=== PATIENT | female | born 1965 | race Caucasian/White ===

== ENCOUNTER 2016-10-10 15:00 | Inpatient (IN) | payer OTHER ==
[2016-10-10] MEDS ORDERED: FUROSEMIDE 10 MG/ML VIAL IV ONE ×3 (15:23→20:18)
--- NOTE | 2016-10-10 15:33 | ERNOTE ---
Dyspnea - Date Date of Service: 10/10/16 - General Presenting Symptoms: shortness of breath Time Seen by Provider: 10/10/16 15:16 Source: patient Exam Limitations: no limitations - Immun/Allergies/Home Medications Allergies/Adverse Reactions: Allergies amoxicillin Allergy (Verified 10/10/16 15:13) aspirin Allergy (Verified 10/10/16 15:13) erythromycin base Allergy (Verified 10/10/16 15:13) morphine Allergy (Verified 10/10/16 15:13) Penicillins Allergy (Verified 10/10/16 15:13) Home Medications: HOME MEDICATIONS NK [No Home Medication] 10/10/16 [Last Taken Unknown] - History of Present Illness Narrative: Pt. comes in with c/o swelling from her abdomen to her toes that is firm and taught and severe abdominal pain. Pt. denies any CP or NVD, but does state that she has a recent history of CHF which is treated in the ER with lasix and improves then worsens after she is discharged home. Pt. denies any fevers, alleviating factors, or aggravating factors. Review of Systems - Review of Systems Constitutional: Present: no symptoms reported. Absent: recent illness, fever, chills, fatigue, malaise EYE: Present: no symptoms reported ENT: Present: no symptoms reported Respiratory: Present: shortness of breath, cough. Absent: wheezing Cardiology: Present: edema. Absent: chest pain, palpitations Gastrointestinal/Abdominal: Present: no symptoms reported. Absent: nausea, vomiting, diarrhea Genitourinary: Present: no symptoms reported. Absent: frequency, pain, decreased urinary output, discharge Musculoskeletal: Present: no symptoms reported. Absent: back pain, joint pain Skin: Present: no symptoms reported Neurological: Present: no symptoms reported. Absent: headache, dizziness/light- headedness, numbness, tingling All Other Systems: All systems neg except as marked - Patient's Past Medical History Patient History - Medical: No pertinent hx Physical Exam - Physical Exam General Appearance: Present: wd/wn, alert, no apparent distress Eye Exam: Normal inspection: bilateral, PERRL: bilateral, EOMI: bilateral Ears, Nose, Throat: Present: normal ENT inspection, hearing grossly normal, normal pharynx Neck: Present: normal inspection, nontender. Absent: lymphadenopathy (R), lymphadenopathy (L) Respiratory: Present: no respiratory distress, normal breath sounds, no accessory muscle use, chest nontender, lungs clear Cardiovascular/Chest: Present: regular rate, rhythm, no murmur, normal peripheral pulses Gastrointestinal/Abdominal: Present: normal bowel sounds, no organomegaly, distended Back Exam: Present: normal inspection, normal range of motion, no CVA tenderness , no vertebral tenderness Extremity Exam: Present: pedal edema - +4 pitting, extremity edema - +4 pitting. Absent: decreased range of motion, calf tenderness Neurological Exam: Present: alert, oriented, normal mood/affect, no motor/ sensory deficits Skin Exam: Present: normal color, warm/dry. Absent: pallor, skin rash ED Progress - Date and Time Seen: Date and Time: 10/10/16 18:[address] Segal and will admit pt. for new onset CHF and cardiomegaly and continue on IV lasix. - Results and Orders Patient's Lab Results:: I have reviewed the patient's lab results. - Vital Signs Patient's Vital Signs:: I have reviewed the patient's vital signs. Vital Signs: Vital Signs 10/10/16 15:07 Temperature 36.6 C Pulse Rate 80 Respiratory 18 Rate Blood Pressure 130/97 - EKG EKG: other - Sinus tach with L axis deviation EKG read: Interp. by me - X-Ray X-Ray #1 X-Ray: chest Interpretation: Reviewed by me X-ray Comments: IMPRESSION: 1. LEFT LOWER LOBE COMPRESSIVE ATELECTASIS VERSUS PULMONARY INFILTRATE. CORRELATE CLINICALLY FOR PNEUMONIA. RECOMMEND FOLLOW-UP TO DOCUMENT RESOLUTION. 2. SMALL LEFT-SIDED PLEURAL EFFUSION. 3. INCREASED PERIPHERAL LUNG MARKINGS NOTED. CORRELATE CLINICALLY FOR MILD INTERSTITIAL PULMONARY EDEMA VERSUS DIFFUSE PNEUMONITIS. 4. MODERATE TO LARGE CARDIOMEGALY PRESENT. CONSIDER CARDIAC CHAMBER ENLARGEMENT VERSUS PERICARDIAL EFFUSION. - Progress/Reassessment Chief Complaint: Dyspnea Departure Clinical Impression: CHF (congestive heart failure) Qualifiers: Congestive heart failure type: unspecified congestive heart failure type Congestive heart failure chronicity: acute Qualified Code(s): I50.9 - Heart failure, unspecified Cellulitis Qualifiers: Site of cellulitis: trunk Site of cellulitis of trunk: abdominal wall Qualified Code(s): L03.311 - Cellulitis of abdominal wall - Departure Disposition: [facility] Condition: Serious
[2016-10-10] MEDS ORDERED: FUROSEMIDE 10 MG/ML VIAL ONE ×2 (16:09→18:28)
[2016-10-10 16:23] LABS: Hematocrit 36.9 % (37.0-47.0); Hemoglobin 11.8 gm/dL (12.5-16.0); Mean Cell Volume 85.4 fl (78-100); Mean Corpuscular Hemoglobin 27.3 pg (27-31); Mean Platelet Volume 11.1 fl (6.0-9.5); Neutrophil # 4.8 K/mm3 (1.3-6.0); Platelet Count 204 K/mm3 (150-450); Red Blood Count 4.32 M/mm3 (4.2-5.4); Red Cell Distribution Width 20.1 % (11.5-14.0); White Blood Count 7.6 K/mm3 (4.0-10.5)
[2016-10-10 16:35] LABS: Albumin * 3.1 gm/dl (3.4-5.0); Anion Gap 11.9 mmol/L (6.8-13.8); BUN/Creatinine Ratio 16.7 (9.0-21.6); Ca. Corrected For Albumin 9.5 mg/dL (8.4-10.2); Calcium * 9.1 mg/dL (7.9-10.9); Potassium 3.9 mmol/L (3.4-4.6)
[2016-10-10 17:20] LABS: Urine Bilirubin Negative (NEGATIVE); Urine Blood 25 /ul (NEGATIVE); Urine Ketone Negative (NEGATIVE); Urine Protein 15 mg/dL (NEGATIVE); Urine Urobilinogen Normal (NORMAL)
[2016-10-10 17:32] LABS: Urine Appearance Clear; Urine Bacteria TRACE; Urine Color Yellow; Urine Nitrite Positive (NEGATIVE); Urine WBC 0-5 /hpf (0-5)
--- NOTE | 2016-10-10 21:24 | HP ---
Chief Complaint - Chief Complaint Date of Service: 10/10/16 Time of Service: 20:00 Chief Complaint: SOB, Abdominal pain, Leg swelling. Source of HPI- Pt; not a precise historian, ER provider report, Pt's EMR. History of Present Illness: Ms. Monroy is a 50-yr-old WF pt who normally sees Dr. Arianna Wong in [place]. Her PMH involves: Anemia, Athritis, Asthma, Bipolar Disorder & Obsessive Compulsive Disorder. Pt reports that for about 1 month, she had noticed that she gets SOB with minimal activity easily. She also states that she has had worsening swelling on her lower extremities. She has felt like her "abdomen has been getting bigger." She went to [facility] ER 2 days ago due to tenderness on her abdomen. She was referred to the Gynecology at the [facility] to check for possible uterine prolapse. However, this was determined not to be the case by Dr. Bin Singh. It appears that Dr. Singh referred her to the ER as pt had also disclosed that she was recently told she had CHF 1 month ago, and was started on Lasix. Pt declines that statement and tells me she has not been on any medications. She does admit to being unable to tolerate a flat position during sleep and feels better in a propped up position. According to ER provider notes, pt stated that she went to ER in [place] recently and was diuresed with Lasix and discharged home. During evaluation at the ER today, the CXR showed increased Interstitial Lung Markings which could be suggestive of CHF. The abdominal X-ray showed concerns for Ascites. Pt denies fevers & Chills. She also denies nausea, vomiting, diarrhea and constipation. Pt will need to be admitted inpatient for a minimum of 2 midnights of more due to clinical signs of Acute Congestive Heart Failure which will respond well to IV diuretics. - Patient's Past Medical History Patient History - Medical: No pertinent hx, Anemia, Arthritis, Other Patient History - Cardiac/Respiratory: Asthma - Bipolar Disorder, Obsessive Compulsive Disorder. Patient History - Cancer: No Hx of Cancer Patient History - Surgical Procedures: Total Knee Replacement - Left. , Other - Tubal Ligation. - Family History Father Family History - Medical: , Other - MVA Mother Family History - Medical: , Diabetes Type 2 - Social History Living Situations: spouse Smoking Status: Current every day smoker Have you smoked in the past 12 months: Yes Do you dip or chew tobacco: No Initiate information on Smoking Cessation: Yes Alcohol Use: none Drug Use: none - Immunizations Immunizations Up to Date: No Hx Pneumococcal Vaccination: No Review Of Systems (GEN) - Review of Systems Generalized/Overall Review: Absent: Weakness, Chills, Fever, Diaphoresis EENTM: Absent: Eye Pain, Blurred Vision, Double Vision, Nose Congestion Respiratory: Present: Shortness of Breath, Orthopnea. Absent: Cough, Wheezing Cardiac: Absent: Chest Pain, Edema, Palpitations Abdominal: Present: Abdominal Pain. Absent: Nausea, Vomiting, Hematemesis, Constipation, Diarrhea Genitourinary: Absent: Burning, Itching, Urgency, Frequency, Hematuria Musculoskeletal: Absent: Joint Pain, Back Pain Neurological: Absent: Headache, Anxiety, Depressed, Tremors, Weakness Skin: Absent: Dryness, Lesions, Bruising Endocrine: Present: Flushing. Absent: Intolerance to Heat, Increased Hunger, Increased Thirst Misc: All systems neg except as marked Allergies/Adverse Reactions: Allergies Allergy/AdvReac Type Severity Reaction Status Date / Time amoxicillin Allergy Verified 10/10/16 15:13 aspirin Allergy Verified 10/10/16 15:13 erythromycin base Allergy Verified 10/10/16 15:13 morphine Allergy Verified 10/10/16 15:13 Penicillins Allergy Verified 10/10/16 15:13 Home Medications: HOME MEDICATIONS NK [No Home Medication] 10/10/16 [Last Taken Unknown] Exam - Exam Vital Signs: Vital Signs - Last Taken Temp 38.5 C H 10/10/16 19:59 Pulse 117 H 10/10/16 19:59 Resp 18 10/10/16 19:59 BP 142/92 10/10/16 19:59 Pulse Ox 92 10/10/16 19:59 Constitutional: Present: Oriented x3, No distress ENT Exam: Present: normal ENT inspection, hearing grossly normal, dry mucous membranes. Absent: nasal congestion, nasal drainage Eye Exam: bilateral eye: normal inspection, PERRL Neck: Present: full range of motion, supple, normal inspection, trachea midline Back Exam: Present: normal inspection, no CVA tenderness Breasts: Present: Exam deferred Respiratory: Present: lungs clear, no accessory muscle use, No wheezing Cardiovascular/Chest: Present: no chest tenderness, no murmur, tachycardia Peripheral Pulses: dorsalis-pedis (R): 1+, dorsalis-pedis (L): 1+ Abdomen: Present: tender - all over., distended - Ascites /Rectal: Present: Other - Wilde Catheter Extremity: Present: lower extremity edema - + 2-3 tibial pedal edema Skin Exam: Present: no cyanosis, cool/dry Lymphatic: Present: no adenopathy Neurologic: Present: no motor/sensory deficits, alert, oriented x 3 Appearance: Present: disheveled, impaired insight Eye contact: Present: cooperative, good eye contact, increased rate of speech Thoughts: Present: no apparent hallucination, obsessive Diagnostic Studies: Abnormal Lab Results 10/10/16 Range/Units Unknown Urine Protein 15 H (NEGATIVE) mg/dL Urine Blood 25 H (NEGATIVE) /ul Urine Nitrate Positive H (NEGATIVE) Ur Leukocyte Esterase 25 H (NEGATIVE) /ul Urine RBC 5-10 H (0-5) /hpf Laboratory Results WBC 7.6 K/mm3 (4.0-10.5) 10/10/16 16:10 RBC 4.32 M/mm3 (4.2-5.4) 10/10/16 16:10 Hgb 11.8 gm/dL (12.5-16.0) L 10/10/16 16:10 Hct 36.9 % (37.0-47.0) L 10/10/16 16:10 MCV 85.4 fl (78-100) 10/10/16 16:10 MCH 27.3 pg (27-31) 10/10/16 16:10 MCHC 32.0 g/dl (32-36) 10/10/16 16:10 RDW 20.1 % (11.5-14.0) H 10/10/16 16:10 Plt Count 204 K/mm3 (150-450) 10/10/16 16:10 MPV 11.1 fl (6.0-9.5) H 10/10/16 16:10 Immature Gran % (Auto) 0.30 % (0.001-0.429) 10/10/16 16:10 Immature Gran # (Auto) 0.02 K/mm3 (0.000-0.0310) 10/10/16 16:10 Neutrophils % 63.0 % (42-75.0) 10/10/16 16:10 Lymphocytes % 27.5 % (20-51) 10/10/16 16:10 Monocytes % 8.1 % (0.0-9) 10/10/16 16:10 Eosinophils % 0.7 % (0.0-3.0) 10/10/16 16:10 Basophils % 0.4 % (0.0-1.0) 10/10/16 16:10 Nucleated RBC % 0.0 k/mm3 (0-1) 10/10/16 16:10 Neutrophils # 4.8 K/mm3 (1.3-6.0) 10/10/16 16:10 Lymphocytes # 2.1 k/mm3 (1.5-3.5) 10/10/16 16:10 Monocytes # 0.6 k/mm3 (0.0-1.0) 10/10/16 16:10 Eosinophils # 0.1 k/mm3 (0.0-0.7) 10/10/16 16:10 Absolute Basophils 0.0 k/mm3 (0.0-0.1) 10/10/16 16:10 Sodium 133 mmol/L (132-142) 10/10/16 16:10 Plasma Sodium 133 mmol/L (130-142) 10/10/16 16:10 Potassium 3.9 mmol/L (3.4-4.6) 10/10/16 16:10 Chloride 96 mmol/L (97-106) L 10/10/16 16:10 Carbon Dioxide 29.0 mmol/L (24-32.6) 10/10/16 16:10 Anion Gap 11.9 mmol/L (6.8-13.8) 10/10/16 16:10 BUN 15 mg/dL (3-23) D 10/10/16 16:10 Creatinine 0.90 mg/dL (0.4-1.4) 10/10/16 16:10 Est GFR (Non-Af Amer) 71 mL/min (60-130) 10/10/16 16:10 BUN/Creatinine Ratio 16.7 (9.0-21.6) 10/10/16 16:10 Random Glucose 113 mg/dL (70-110) H 10/10/16 16:10 Calcium 9.1 mg/dL (7.9-10.9) 10/10/16 16:10 Calcium Adj for Albumin 9.5 mg/dL (8.4-10.2) 10/10/16 16:10 Total Bilirubin 1.0 mg/dL (0.0-1.1) 10/10/16 16:10 AST 40 U/L (0-48) 10/10/16 16:10 ALT 45 U/L (19-67) 10/10/16 16:10 Alkaline Phosphatase 246 U/L (50-170) H 10/10/16 16:10 B-Natriuretic Peptide 2684 pg/mL (5-150) H 10/10/16 16:10 Total Protein 7.0 gm/dL (6.2-8.2) 10/10/16 16:10 Albumin 3.1 gm/dl (3.4-5.0) L 10/10/16 16:10 Urine Color Yellow 10/10/16 Unknown Urine Appearance Clear 10/10/16 Unknown Urine pH 6.0 pH (5.0-7.0) 10/10/16 Unknown Ur Specific [place] 1.010 SP.GR. (1.005-1.010) 10/10/16 Unknown Urine Protein 15 mg/dL (NEGATIVE) H 10/10/16 Unknown Urine Glucose (UA) Negative mg/dL (NEGATIVE) 10/10/16 Unknown Urine Ketones Negative mg/dL (NEGATIVE) 10/10/16 Unknown Urine Blood 25 /ul (NEGATIVE) H 10/10/16 Unknown Urine Nitrate Positive (NEGATIVE) H 10/10/16 Unknown Urine Bilirubin Negative mg/dl (NEGATIVE) 10/10/16 Unknown Prot Sulfosalicylic Acd Negative mg/dL (0) 10/10/16 Unknown Urine Urobilinogen Normal EU/dl (NORMAL) 10/10/16 Unknown Ur Leukocyte Esterase 25 /ul (NEGATIVE) H 10/10/16 Unknown Urine RBC 5-10 /hpf (0-5) H 10/10/16 Unknown Urine WBC 0-5 /hpf (0-5) 10/10/16 Unknown Ur Epithelial Cells 0-5 /hpf (0-5) 10/10/16 Unknown Urine Bacteria Trace (NONE) 10/10/16 Unknown Urine Culture Comments Culture to follow 10/10/16 Unknown Influenza Type A Ag Negative (NEGATIVE) 10/10/16 16:03 Influenza Type B Ag Negative (NEGATIVE) 10/10/16 16:03 Group A Strep Rapid Negative (NEGATIVE) 10/10/16 16:03 Assessment/Plan - Assessment/Plan (1) Acute exacerbation of CHF (congestive heart failure) Assessment: Ms. Monroy is a 50-yr-old WF who will need to be admitted for an acute inpatient stay due to signs of heart failure as seen from history of dyspnea at rest or with exertion. She has evidence of volume overload noted with increased peripheral edema on BLE & widespread swelling which extends to the thighs and Abdomen. The CXR findings were consistent with CHF. She is not on any medications that worsen CHF. I suspect that poor medication adherence and lack of follow-up with PCP have contributed to the worsening of her symptoms. There is no current electrocardiogram available. Will obtain one in a.m to evaluate for LVF or HFrEF and will consider additional medications based on the findings. Will diurese with IV Lasix, offer CHF teaching, Accurate I/Os, daily wt, low Na diet. Monitor BMP in am. Problem: Acute (2) Pleural effusion Assessment: CXR showed Small Left Sided pleural effusion. This may respond to the IV diurectics. Will have a follow-up CXR after discharge to check for resolution. May cover with empriric IV antibiotics due to the fever tonight. Problem: Acute (3) Bacterial peritonitis Assessment: Spontanous Bacterial peritonitic is suspected given pt's fever, abdominal pain & Ascites. WBC is normal but empiric antibiotics is strongly recommended. Consider diagnostic abdominal paracentesis. Problem: Suspected (4) Alkaline phosphatase elevation Assessment: Will check GGT with the am labs, & if elevated,suspect liver injury- non- alcoholic fatty liver disease or hepatitis C. Consider US of the liver. Problem: Acute (5) Ascites Assessment: Pt is noted to have abd. pain, abd. distention and reports orthopnea. May need diagnostic paracentesis for diagnosis as this maybe a new onset. Sodium restricted diet and IV diuretics and increase doses if no inadequate weight loss. Problem: Acute (6) Fluid overload Assessment: Continue with CHF, teaching, IV Duiretics, Strict i/o, daily Wts. 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
[2016-10-11 05:41] LABS: Hematocrit 33.1 % (37.0-47.0); Hemoglobin 10.6 gm/dL (12.5-16.0); Mean Cell Volume 84.4 fl (78-100); Mean Platelet Volume 10.6 fl (6.0-9.5); Neutrophil # 4.2 K/mm3 (1.3-6.0); Neutrophil % 64.8 % (42-75.0); Platelet Count 169 K/mm3 (150-450); Red Blood Count 3.92 M/mm3 (4.2-5.4); Red Cell Distribution Width 19.6 % (11.5-14.0); White Blood Count 6.5 K/mm3 (4.0-10.5)
[2016-10-11 06:05] LABS: Albumin * 2.8 gm/dl (3.4-5.0); BUN/Creatinine Ratio 16.8 (9.0-21.6); Bilirubin Direct 0.4 mg/dL (0.0-0.3); Bilirubin, Total 0.7 mg/dL (0.0-1.1); Bilirubin,Indirect 0.3 mg/dL (0.1-0.7); Calcium * 8.8 mg/dL (7.9-10.9); Carbon Dioxide 31.1 mmol/L (24-32.6); Chol/HDL Risk Ratio 8.6 mg/dL (3.3-4.4); Estimated Creat Clear 69.7; Potassium 3.1 mmol/L (3.4-4.6); Total Protein 6.2 gm/dL (6.2-8.2)
--- NOTE | 2016-10-11 08:58 | PN ---
Subjective - Date and Time Seen Date: 10/11/16 Time: 08:15 Subjective Narrative: Patient seen today sitting up in bed, pt stated she was feeling much better than she did upon adm. It felt like magic happen overnight because she is able to breath, lay the head of her bed back without shortness of breath. She got up and walk without shortness of breath on exertion. Swelling to her legs and abdomen improved tremendously since last night. Pt stated pain to her abdomen had resolved. Objective - Review of Systems Generalized/Overall Review: Reports: Weight loss EENTM: Reports: No Symptoms Reported Respiratory: Reports: Cough Cardiac: Reports: Edema Abdominal: Reports: Other - ascites Genitourinary Symptoms: Reports: Frequency, Other - Wilde cath Musculoskeletal Complaints: Reports: No Symptoms Reported Neurological: Reports: No Symptoms Reported Skin: Reports: Other - diffused redness to abd improved Endocrine: Reports: No Symptoms Reported - Vitals Vitals: Last Vital Signs Temp 36.5 C 10/11/16 00:16 Pulse 118 H 10/11/16 07:55 Resp 28 H 10/11/16 07:55 BP 162/98 10/11/16 07:55 Pulse Ox 96 10/11/16 07:55 - Abnormal Lab Findings Abnormal Lab Findings: Abnormal Lab Results 10/10/16 10/11/16 10/11/16 Range/Units Unknown 05:30 05:30 RBC 3.92 L (4.2-5.4) M/mm3 Hgb 10.6 L (12.5-16.0) gm/dL Hct 33.1 L (37.0-47.0) % RDW 19.6 H (11.5-14.0) % MPV 10.6 H (6.0-9.5) fl Monocytes % 9.6 H (0.0-9) % Potassium 3.1 L D (3.4-4.6) mmol/L Random Glucose 159 H D (70-110) mg/dL Direct Bilirubin 0.4 H (0.0-0.3) mg/dL Alkaline Phosphatase 222 H (50-170) U/L Albumin 2.8 L (3.4-5.0) gm/dl HDL Cholesterol 15 L (40-60) mg/dL Cholesterol/HDL Ratio 8.6 H (3.3-4.4) mg/dL Urine Protein 15 H (NEGATIVE) mg/dL Urine Blood 25 H (NEGATIVE) /ul Urine Nitrate Positive H (NEGATIVE) Ur Leukocyte Esterase 25 H (NEGATIVE) /ul Urine RBC 5-10 H (0-5) /hpf - EKG/Xray Findings EKG: rhythm - Exam Constitutional: Present: Alert, Oriented x3, Cooperative, Well developed, No distress, Looks Older than stated age ENT Exam: Present: moist mucous membranes, other - missing teeth Neck: Present: full range of motion Breasts: Present: Exam deferred Respiratory: Present: chest non-tender, normal breath sounds, no respiratory distress, decreased breath sounds Cardiovascular/Chest: Present: no chest tenderness, no JVD, tachycardia, other - BLE ---> thighs and andomen edema pitting +4 Abdomen: Present: Normal bowel sounds, nondistended, no rebound tenderness, other - ascites secondary to chf /Rectal: Present: Exam deferred Extremity: Present: normal range of motion, non-tender, normal inspection, lower extremity edema, pedal edema, slow capillary refill, swelling Skin Exam: Present: warm/dry, no cyanosis, other - diffused redness lower abdomen improving Neurologic: Present: oriented x 3 Appearance: Present: appropriate appearance Eye contact: Present: cooperative, good eye contact Thoughts: Present: normal thought pattern Cauti Physician Documentation - Urinary Catheter Management Urethral (Wilde) Date of Insertion: 10/10/16 Time of Insertion: 17:11 Assessment/Plan Plan Narrative: Acute exacerbation of CHF (congestive heart failure) Pt noticed S/S a months ago, [facility]. pt however stated she wasn't given medications.Her swelling and shortness of breath continue to get progressively worst. No JVD, BLE pitting edema from thighs to abdomen Incidental finding of cardiomegaly 2D echo pending Continue with IV Lasix and keep Wilde for correct I/O Daily weight and strict I/O CHF teaching and low sodium diet On adm [id number]-----> BMP in am VTE ppx SCD/ ambulate daily Pleural effusion- likely due to CHF exacerbation On adm CXR showed Small Left Sided pleural effusion. Continue with IV Lasix, today pt stated she was able to breath much better. F/U CXR before DC Bacterial peritonitis likely due to the vascular congestion vs infectious process Spontanous Bacterial peritonitic is suspected given pt's fever on adm Temp 38.5 abdominal pain & Ascites. which has improved overnight. On adm WBC is normal but empiric antibiotics Rocephin given overnight Cultures pending Alkaline phosphatase elevation- gradually improving On adm ALK phos 246------>222 GGT and liver enzymes normal Ascites Secondary to CHF exacerbation Today pt denies abdominal pain, abdominal distention and reports orthopnea improved overnight. If no improvement of ascites will consider paracentesis for diagnosis as this maybe a new onset. Continue with low sodium diet and IV diuretics Fluid overload- Likely due to CHF exacerbation Continue with Plan same as #1 Asthma Chronic pt smoke 1 pack cigarette daily smoking cessation , nicotine patch No home medications recorded Hypokalemia: due to IV Lasix diuresis Supplemented monitor BMP in am Obsessive compulsive personality disorder Problem: Chronic No home medications recorded Bipolar 1 disorder Problem: Chronic No home medications recorded. Diabetes Resume metformin 500mg BID Monitor Blood glucose AC+HS VTE ppx: SCD and ambulate Code status : Full - Problems/Diagnosis (1) Acute exacerbation of CHF (congestive heart failure) Problem: Acute (2) Alkaline phosphatase elevation Problem: Acute (3) Ascites Problem: Acute (4) Cellulitis Problem: Acute Qualifiers: Site of cellulitis: trunk Site of cellulitis of trunk: abdominal wall Qualified Code(s): L03.311 - Cellulitis of abdominal wall (5) Pleural effusion Problem: Acute (6) Asthma Problem: Chronic (7) Bipolar 1 disorder Problem: Chronic (8) Obsessive compulsive personality disorder Problem: Chronic (9) Bacterial peritonitis Problem: Suspected (10) Diabetes Problem: Acute Qualifiers: Diabetes mellitus type: type 2 (11) Hypokalemia due to loss of potassium Problem: Acute
[2016-10-11] MEDS: FUROSEMIDE 40 MG, FUROSEMIDE 20 MG IV SCH ×4 (09:24→21:25)
[2016-10-11] MEDS: POTASSIUM CHLORIDE 20 MEQ TABLET.SA PO SCH ×2 (09:25→17:37)
[2016-10-11] MEDS: NICOTINE 21 MG PATC TD SCH (09:25)
[2016-10-11] MEDS: metFORMIN HCL 500 MG TABLET PO SCH (17:37)
[2016-10-11] MEDS: CARVEDILOL 3.125 MG TABLET PO SCH (21:23)
[2016-10-12 06:28] LABS: Anion Gap 13.4 mmol/L (6.8-13.8); BUN/Creatinine Ratio 17.3 (9.0-21.6); Calcium * 8.8 mg/dL (7.9-10.9); Carbon Dioxide 29.3 mmol/L (24-32.6); Estimated Creat Clear 67.5; Potassium 3.7 mmol/L (3.4-4.6)
--- NOTE | 2016-10-12 08:14 | ECHO ---
This report is available in the EMR
[2016-10-12] MEDS ORDERED: FUROSEMIDE 10 MG/ML VIAL IV SCH (09:00)
[2016-10-12] MEDS: SPIRONOLACTONE 25 MG TABLET PO SCH (09:09)
[2016-10-12] MEDS: CARVEDILOL 3.125 MG TABLET PO SCH ×2 (09:09→22:12)
[2016-10-12] MEDS: NICOTINE 21 MG PATC TD SCH (09:10)
[2016-10-12] MEDS: FUROSEMIDE 40 MG, FUROSEMIDE 20 MG IV SCH ×4 (09:10→22:12)
[2016-10-12] MEDS: POTASSIUM CHLORIDE 20 MEQ TABLET.SA PO SCH ×2 (09:10→16:26)
[2016-10-12] MEDS: metFORMIN HCL 500 MG TABLET PO SCH ×2 (09:10→16:26)
[2016-10-12] MEDS: LISINOPRIL 5 MG TABLET PO SCH (09:11)
[2016-10-12] MEDS ORDERED: LORazepam 1 MG TABLET PO PRN (09:24)
--- NOTE | 2016-10-12 09:24 | PN ---
Subjective - Date and Time Seen Date: 10/12/16 Time: 09:00 Subjective Narrative: Patient seen today in room tearful. pt stated she went outside last night to get fresh air, but didn't have cigarette and now she need a smoke. she is able to breath without and walk without getting shortness of breath. Her swelling to BLE and abdomen is improving and pt anticipating DC home. Pt is reluctant to use nicotine patch and stated she used Ativan in the past for anxiety. She had ran put of medication so she stopped taking meds. Objective - Review of Systems Generalized/Overall Review: Reports: No Symptoms Reported EENTM: Reports: No Symptoms Reported Respiratory: Reports: No Symptoms Reported Cardiac: Reports: No Symptoms Reported Abdominal: Reports: No Symptoms Reported Genitourinary Symptoms: Reports: No Symptoms Reported Musculoskeletal Complaints: Reports: No Symptoms Reported Neurological: Reports: No Symptoms Reported Skin: Reports: No Symptoms Reported Endocrine: Reports: No Symptoms Reported - Vitals Vitals: Last Vital Signs Temp 36.8 C 10/12/16 08:18 Pulse 98 10/12/16 08:18 Resp 20 10/12/16 08:18 BP 118/86 10/12/16 08:18 Pulse Ox 95 10/12/16 08:18 - Abnormal Lab Findings Abnormal Lab Findings: Abnormal Lab Results 10/11/16 10/12/16 Range/Units 05:40 06:11 Random Glucose 116 H (70-110) mg/dL B-Natriuretic Peptide 3181 H (5-150) pg/mL - Exam Constitutional: Present: Alert, Oriented x3, Cooperative, Well developed, No distress, Looks Older than stated age ENT Exam: Present: moist mucous membranes Respiratory: Present: chest non-tender, normal breath sounds, no respiratory distress, crackles Cardiovascular/Chest: Present: normal peripheral pulses, no chest tenderness, no JVD, other - BLE pitting edema +4 leg to thigh and ascites to abdomen /Rectal: Present: Exam deferred Extremity: Present: normal range of motion, non-tender, normal inspection, no calf tenderness, lower extremity edema Skin Exam: Present: normal color, warm/dry Neurologic: Present: oriented x 3 Appearance: Present: appropriate appearance Eye contact: Present: cooperative, good eye contact Thoughts: Present: normal thought pattern Cauti Physician Documentation - Urinary Catheter Management Urethral (Wilde) Date of Insertion: 10/10/16 Time of Insertion: 17:11 Date of Removal: 10/12/16 Time of Removal: 02:40 Assessment/Plan Plan Narrative: Acute exacerbation of systolic CHF (congestive heart failure) Pt noticed S/S a months ago, she was seen at [facility] diuresed and given Lasix. pt however stated she wasn't given medications.Her swelling and shortness of breath continue to get progressively worst. No JVD, BLE pitting edema from thighs to abdomen, slowing improving Incidental finding of cardiomegaly 2D echo : EF 30% pulmonary hypertension, small pericardial effusion, mod-sev MR , small pleural effusion. 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 Potentialy will improved with diuretic Continue with IV Lasix, pt stated she is breathing better and went outside to get fresh air last night and want to smoke. May consider a F/U CXR before DC Ascites Secondary to CHF exacerbation She denies abdominal pain, abdominal distention, orthopnea. gradually improving of ascites Continue with low sodium diet and IV diuretics Fluid overload- Likely due to CHF exacerbation Continue with Plan same as #1 Asthma Chronic pt smoke 1 pack cigarette daily smoking cessation , nicotine patch No home medications recorded Hypokalemia: - resolved Secondary to IV Lasix diuresis Supplemented monitor BMP in am Obsessive compulsive personality disorder Problem: Chronic No home medications recorded Pt stated she ran out of medications and stopped Bipolar 1 disorder Problem: Chronic No home medications recorded. Pt stated she ran out of medications and stopped Diabetes - stable Resume metformin 500mg BID Monitor Blood glucose AC+HS Bacterial peritonitis likely due to the vascular congestion vs infectious process Spontanous Bacterial peritonitic is suspected given pt's fever on adm Temp 38.5 abdominal pain & Ascites on adm which has since resolved. On adm WBC is normal but empiric antibiotics Rocephin given overnight Blood Cultures no growth. Alkaline phosphatase elevation- gradually improving On adm ALK phos 246------>222 GGT and liver enzymes normal VTE ppx: SCD and ambulate Code status : Full - Problems/Diagnosis (1) Acute exacerbation of CHF (congestive heart failure) Problem: Acute Qualifiers: Congestive heart failure type: systolic Qualified Code(s): I50.23 - Acute on chronic systolic (congestive) heart failure (2) Alkaline phosphatase elevation Problem: Acute (3) Ascites Problem: Acute (4) Cellulitis Problem: Acute Qualifiers: Site of cellulitis: trunk Site of cellulitis of trunk: abdominal wall Qualified Code(s): L03.311 - Cellulitis of abdominal wall (5) Pleural effusion Problem: Acute (6) Asthma Problem: Chronic (7) Bipolar 1 disorder Problem: Chronic (8) Obsessive compulsive personality disorder Problem: Chronic (9) Bacterial peritonitis Problem: Suspected (10) Diabetes Problem: Acute Qualifiers: Diabetes mellitus type: type 2 (11) Hypokalemia due to loss of potassium Problem: Resolved
[2016-10-12] MEDS ORDERED: LORazepam 1 MG TABLET PO ONE (09:25)
[2016-10-12 11:15] LABS: Prothrombin Time (Patient) 14.7 Seconds (9.4-11.4)
[2016-10-12 11:17] LABS: INR 1.41 INR (0.90-1.10)
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
[2016-10-12] MEDS: WARFARIN SODIUM 5 MG TABLET PO SCH (16:26)
[2016-10-12] MEDS ORDERED: risperiDONE 1 MG TABLET PO SCH (17:00)
[2016-10-12] MEDS ORDERED: QUEtiapine FUMARATE 25 MG TABLET PO ONE (17:39)
[2016-10-13 07:20] LABS: INR 1.3 INR (0.90-1.10); Prothrombin Time (Patient) 13.5 Seconds (9.4-11.4)
[2016-10-13] MEDS: metFORMIN HCL 500 MG TABLET PO SCH ×2 (08:45→16:43)
[2016-10-13] MEDS: POTASSIUM CHLORIDE 20 MEQ TABLET.SA PO SCH ×2 (08:45→16:44)
[2016-10-13] MEDS: FUROSEMIDE 40 MG, FUROSEMIDE 20 MG IV SCH ×4 (08:46→21:08)
[2016-10-13] MEDS: CARVEDILOL 3.125 MG TABLET PO SCH ×2 (08:46→21:07)
[2016-10-13] MEDS: LISINOPRIL 5 MG TABLET PO SCH (08:46)
[2016-10-13] MEDS: SPIRONOLACTONE 25 MG TABLET PO SCH (08:46)
[2016-10-13] MEDS: NICOTINE 21 MG PATC TD SCH (08:48)
--- NOTE | 2016-10-13 09:47 | PN ---
Subjective - Date and Time Seen Date: 10/13/16 Time: 09:00 Subjective Narrative: Patient was interviewed in her room with an uncle and her two younger sisters. She refused the Risperidone last night because a previous proivider gave her a very high dose and "it made my jaw lock." When I explained to her this morning that that reactiobn was due to an extremely high dose , she settled down. Whereas last night she said she would not take Seroquel again tonight, after I talked with her and she admitted that last night was the first night she has ever slept peacefully the whole night through, she then agreed to continue with the Seroquel at HS daily. I shall reorder Quetiapine at 100 mg at HS daily. She is still quite hypomanic: Interrupts all the time, has extreme logorrhea , and has a very hard time concentrating and sitting still. I am hoping that this increased dose shall help her. My original reason for starting hert on Risperidone was that, since Paliperidone is a subsequent result of Risperidone metabolism, I might be able, in the future to circumnavigate her famous and proven unwillingness to stick to any provider and /or medication by giving her a depot antipsychotic. Dave/ Kinjal stay in her body for 3 months. I shall see her again tomorrow. I am willing to discharge her tomorrow , if she is medically stable by then and follow her up in my outpatient office. Objective - Vitals Vitals: Last Vital Signs Temp 36.7 C 10/13/16 07:22 Pulse 102 H 10/13/16 08:46 Resp 20 10/13/16 07:22 BP 100/81 10/13/16 08:46 Pulse Ox 96 10/13/16 07:22 - Abnormal Lab Findings Abnormal Lab Findings: Abnormal Lab Results 10/12/16 10/13/16 10/13/16 Range/Units 11:02 05:38 05:38 PT 14.7 H 13.5 H (9.4-11.4) Seconds INR (Anticoag Therapy) 1.41 H 1.30 H (0.90-1.10) INR B-Natriuretic Peptide 2264 H (5-150) pg/mL Cauti Physician Documentation - Urinary Catheter Management Urethral (Wilde) Date of Insertion: 10/10/16 Time of Insertion: 17:11 Date of Removal: 10/12/16 Time of Removal: 02:40 Assessment/Plan - Problems/Diagnosis (1) Brenton Problem: Acute
[2016-10-13 11:12] LABS: BUN/Creatinine Ratio 17.5 (9.0-21.6); Calcium * 8.5 mg/dL (7.9-10.9); Carbon Dioxide 30.9 mmol/L (24-32.6); Potassium 3.9 mmol/L (3.4-4.6)
--- NOTE | 2016-10-13 12:16 | PN ---
Subjective - Date and Time Seen Date: 10/13/16 Time: 09:40 Subjective Narrative: Patient seen today with family at the bed side, is is little more settled than she was yesterday. She is in good spirit and stated she slept well last night. She denies shortness of breath and eager to have follow up with her PCP and Dr Valdez. pt stated she will take all her medications upon discharge and plan to quit smoking. She stated the swelling to her legs and thighs improving. she is loosing weight each day and feeling much better. Objective - Review of Systems Generalized/Overall Review: Reports: No Symptoms Reported EENTM: Reports: No Symptoms Reported Respiratory: Reports: No Symptoms Reported Cardiac: Reports: No Symptoms Reported Abdominal: Reports: No Symptoms Reported Genitourinary Symptoms: Reports: No Symptoms Reported Musculoskeletal Complaints: Reports: No Symptoms Reported Neurological: Reports: No Symptoms Reported Skin: Reports: No Symptoms Reported Endocrine: Reports: No Symptoms Reported - Vitals Vitals: Last Vital Signs Temp 36.8 C 10/13/16 10:59 Pulse 97 10/13/16 10:59 Resp 20 10/13/16 10:59 BP 105/72 10/13/16 10:59 Pulse Ox 95 10/13/16 10:59 - Abnormal Lab Findings Abnormal Lab Findings: Abnormal Lab Results 10/13/16 10/13/16 10/13/16 Range/Units 05:38 05:38 05:38 PT 13.5 H (9.4-11.4) Seconds INR (Anticoag Therapy) 1.30 H (0.90-1.10) INR Est GFR (Non-Af Amer) 54 L (60-130) mL/min Random Glucose 168 H D (70-110) mg/dL B-Natriuretic Peptide 2264 H (5-150) pg/mL - Exam Constitutional: Present: Alert, Oriented x3, Cooperative, Well developed, No distress ENT Exam: Present: normal ENT inspection, hearing grossly normal, pharynx normal , TMs normal Neck: Present: full range of motion Breasts: Present: Exam deferred Respiratory: Present: chest non-tender, no respiratory distress, no accessory muscle use, decreased breath sounds Cardiovascular/Chest: Present: other - BL legs and thighs edema improving Abdomen: Present: Normal bowel sounds, soft, nontender, no rebound tenderness, other - ascites improving /Rectal: Present: Exam deferred Extremity: Present: normal range of motion, non-tender, normal inspection, lower extremity edema, pedal edema, slow capillary refill, swelling Skin Exam: Present: normal color, no cyanosis, cool/dry Lymphatic: Present: no adenopathy Neurologic: Present: oriented x 3 Appearance: Present: appropriate appearance Eye contact: Present: cooperative, good eye contact Thoughts: Present: normal thought pattern Cauti Physician Documentation - Urinary Catheter Management Urethral (Wilde) Date of Insertion: 10/10/16 Time of Insertion: 17:11 Date of Removal: 10/12/16 Time of Removal: 02:40 Assessment/Plan Plan Narrative: Acute exacerbation of systolic CHF (congestive heart failure) while hospitalized her s/s has been improving while on diuretics No JVD, BLE pitting edema from thighs to abdomen, continue to improve Incidental finding of cardiomegaly 2D echo : EF 30%--- pulmonary hypertension, small pericardial effusion, mod-sev MR and small pleural effusion. Continue Lasix for symptom management. Additional to regimen Coreg 3.125 BID, Zestril daily, Aldactone daily and Coumadin. Monitor BMP in am Pt to follow up with claims examiner upon discharge Daily weight 95.7kg----->90.1kg---->88.3kg----->97.1kg Strict I/O CHF teaching and low sodium diet On adm [id number]----->3181 ----> 2264 improving VTE ppx SCD/ ambulate daily Nicotine patch and smoking cessation education Obsessive compulsive borderline personality disorder No home medications recorded Pt stated she ran out of medications and stopped Psy consulted and following Bipolar 1 disorder No home medications recorded. Pt stated she ran out of medications and stopped Psy consulted and following, she was started on Seroquel 100mh Q HS Small Pleural effusion- likely due to CHF exacerbation On adm CXR showed Small Left Sided pleural effusion. Potentialy will improved with diuretic Continue with IV Lasix, pt stated she is breathing better and went outside to get fresh air last night and want to smoke. May consider a F/U CXR before DC Ascites- resolving Secondary to CHF exacerbation She denies abdominal pain, abdominal distention, orthopnea. gradually improving of ascites Continue with low sodium diet and IV diuretics Fluid overload- Likely due to CHF exacerbation Continue with Plan same as #1 Asthma Chronic pt smoke 1 pack cigarette daily smoking cessation , nicotine patch No home medications recorded Hypokalemia: - resolved Secondary to IV Lasix diuresis Supplemented monitor BMP in am Diabetes - stable Metformin 500mg BID Monitor Blood glucose AC+HS Low sodium/ consistent carb diet Bacterial peritonitis likely due to the vascular congestion vs infectious process- resolving Spontanous Bacterial peritonitic is suspected given pt's fever on adm Temp 38.5 abdominal pain & Ascites on adm which has since resolved. On adm WBC is normal but empiric antibiotics Rocephin given overnight Blood Cultures no growth. Alkaline phosphatase elevation- gradually improving On adm ALK phos 246------>222 GGT and liver enzymes normal VTE ppx: Ambulate on therapeutic Coumadin Code status : Full - Problems/Diagnosis (1) Acute exacerbation of CHF (congestive heart failure) Problem: Acute Qualifiers: Congestive heart failure type: systolic Qualified Code(s): I50.23 - Acute on chronic systolic (congestive) heart failure (2) Alkaline phosphatase elevation Problem: Acute (3) Ascites Problem: Acute (4) Cellulitis Problem: Acute Qualifiers: Site of cellulitis: trunk Site of cellulitis of trunk: abdominal wall Qualified Code(s): L03.311 - Cellulitis of abdominal wall (5) Pleural effusion Problem: Acute (6) Asthma Problem: Chronic (7) Bipolar 1 disorder Problem: Chronic (8) Obsessive compulsive personality disorder Problem: Chronic (9) Bacterial peritonitis Problem: Suspected (10) Diabetes Problem: Acute Qualifiers: Diabetes mellitus type: type 2 (11) Hypokalemia due to loss of potassium Problem: Resolved
[2016-10-13] MEDS: WARFARIN SODIUM 5 MG TABLET PO SCH (16:43)
[2016-10-13] MEDS ORDERED: QUEtiapine FUMARATE 100 MG TABLET PO SCH (21:00)
[2016-10-14 06:02] LABS: Prothrombin Time (Patient) 13.8 Seconds (9.4-11.4)
[2016-10-14 06:03] LABS: INR 1.33 INR (0.90-1.10)
[2016-10-14 07:01] VITALS: BP 98/73
[2016-10-14] MEDS: SPIRONOLACTONE 25 MG TABLET PO SCH (08:24)
[2016-10-14] MEDS: CARVEDILOL 3.125 MG TABLET PO SCH (08:24)
[2016-10-14] MEDS: FUROSEMIDE 40 MG, FUROSEMIDE 20 MG IV SCH ×2 (08:25)
[2016-10-14] MEDS: metFORMIN HCL 500 MG TABLET PO SCH (08:25)
[2016-10-14] MEDS: POTASSIUM CHLORIDE 20 MEQ TABLET.SA PO SCH (08:25)
[2016-10-14] MEDS: NICOTINE 21 MG PATC TD SCH (08:26)
[2016-10-14] MEDS: LISINOPRIL 5 MG TABLET PO SCH (08:26)
[2016-10-14] MEDS ORDERED: CARVEDILOL 3.125 MG TABLET PO ONE (09:30)
--- NOTE | 2016-10-14 09:35 | DS ---
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 Arianna Wong in [place]. Her PMH involves: Anemia, Athritis, Asthma, Bipolar Disorder & Obsessive Compulsive Disorder. Pt reports that for about 1 month, she had noticed that she gets SOB with minimal activity easily. She also states that she has had worsening swelling on her lower extremities. She has felt like her "abdomen has been getting bigger." She went to [facility] ER 2 days ago due to tenderness on her abdomen. She was referred to the Gynecology at the [facility] to check for possible uterine prolapse. However, this was determined not to be the case by Dr. Bin Singh. It appears that Dr. Singh referred her to the ER as pt had also disclosed that she was recently told she had CHF 1 month ago, and was started on Lasix. She had not been taking any medications. She did admit to being unable to tolerate a flat position during sleep and feels better in a propped up position. According to ER provider notes, pt stated that she went to ER in [place] recently and was diuresed with Lasix and discharged home. During evaluation at the ER today, the CXR showed increased Interstitial Lung Markings which could be suggestive of CHF. The abdominal X-ray showed concern for Ascites. Pt denied fevers & Chills. She also denied nausea, vomiting, diarrhea and constipation. The patient was admitted for Acute Congestive Heart Failure and was started on IV diuretics. Her Echo showed boerderline LVH, EF of 30 %, mod to severe MR/TR, RSVP of 50. She was started on Coreg, Lisinopril and Spironolactone, Coumadin. There was no cardiology service available that time. Dr. Valdez was consulted for her psych issues and he started her on Quietapine ( Seroquel). She improved clinically and will be discharge today and will schedule a cardiology consult on an outpatient basis. Procedures Performed: none Discharge Disposition: Home self care Disposition: Home self-care Condition: Fair Discharge Diet: Consistent carbs, Low salt, Low fat/chol Referrals: Angela Wong, [Primary Care Provider] - Problem Oriented Discharge Instructions to Patient/Family: Heart Failure, Easy- to-Read Additional Patient Instructions (free text): Follow up with PCP- Dr. Wong in 1 week Schedule an appointment with cardiology in [facility] next week. Follow up with Dr. Valdez. They will call you with the appointment times next week. Come in any time on Sunday for outpatient labs to be drawn. Follow up with Dr. Wong on October at 10:45 AM. Follow up with DR. Valdez on October at 10:30 AM. Prescriptions (Any new or edited meds): Furosemide [Lasix] 120 mg PO DAILY #60 tablet Lisinopril [Zestril] 5 mg PO DAILY #30 tablet Potassium Chloride [K-Dur] 20 meq PO DAILY #30 tablet. Complete Home Medications List: Complete Home Medication List: Carvedilol [Coreg] 6.25 mg PO BID tablet 10/14/16 Furosemide [Lasix] 120 mg PO DAILY #60 tablet 10/14/16 Lisinopril [Zestril] 5 mg PO DAILY #30 tablet 10/14/16 Nicotine [Nicoderm] 21 mg TD Q24H patch.td24 10/14/16 Potassium Chloride [K-Dur] 20 meq PO DAILY #30 tablet.sa 10/14/16 QUEtiapine FUMARATE [Seroquel] 100 mg PO HS tablet 10/14/16 Spironolactone [Aldactone] 25 mg PO DAILY tablet 10/14/16 Warfarin Sodium [Coumadin] 5 mg PO DAILY@1700 tablet 01/14/17 metFORMIN HCL [Glucophage] 500 mg PO BIDWM tablet 10/14/16 Amb Orders for Discharge: Basic Metabolic Panel Time Frame: 10/16/16, Location: Determined By Patient Prothrombin Time Time Frame: 10/16/16, Location: Determined By Patient
[2016-10-14] MEDS ORDERED: CARVEDILOL 6.25 MG TABLET PO SCH (21:00)
== END 2016-10-14 12:09 | disposition home or self-care (01) | DRG 291 ==
LOC: ER 15:00 → MS 18:21
PROVIDERS: ADMIT Internal Medicine; ATTEND Internal Medicine
DX: I50.23 Acute on chronic systolic (congestive) heart failure (principal); K65.2 Spontaneous bacterial peritonitis; R18.8 Other ascites; L03.311 Cellulitis of abdominal wall; I31.3 Pericardial effusion (noninflammatory); F31.89 Other bipolar disorder; E87.6 Hypokalemia; R74.8 Abnormal levels of other serum enzymes; J45.909 Unspecified asthma, uncomplicated; F17.210 Nicotine dependence, cigarettes, uncomplicated; F42.9 Obsessive-compulsive disorder, unspecified; F31.9 Bipolar disorder, unspecified; I27.2 Other secondary pulmonary hypertension; E11.9 Type 2 diabetes mellitus without complications; I34.0 Nonrheumatic mitral (valve) insufficiency; I07.1 Rheumatic tricuspid insufficiency; F60.3 Borderline personality disorder